=== PATIENT | female | born 1970 | race African-American/Black ===

== ENCOUNTER 2016-08-08 14:47 | Emergency (ER) | payer MEDICAID ==
[~2016-08-08] VITALS: Ht 167.6 cm; Wt 105.0 kg
[2016-08-08] MEDS ORDERED: METF500T4 PO (14:51)
[2016-08-08] MEDS ORDERED: HYDR12.529 PO (14:51)
[2016-08-08] MEDS ORDERED: KETOROLAC 60MG/2ML VIAL IM ONE (18:00)
[2016-08-08] MEDS ORDERED: ONDANSETRON 4MG ODT PO ONE (18:00)
[2016-08-08 18:38] LABS: BASOPHILS % 0.7 % (0.0-2.0); EOSINOPHILS % 0.4 % (0.0-5.0); HEMATOCRIT. 39.1 % (36.0-48.0); HEMOGLOBIN. 12.9 g/dL (12.0-16.0); LYMPHOCYTES % 11.7 % (20.0-50.0); MEAN CORPUSCULAR HEMOGLOBIN 27.4 pg (28.0-32.0); MEAN CORPUSCULAR HGB CONC 33.1 g/dL (31.0-37.0); MEAN CORPUSCULAR VOLUME 82.8 fL (81.0-99.0); MEAN PLATELET VOLUME 7.7 fl (7.4-10.4); MONOCYTES % 5.3 % (2.0-8.0); NEUTROPHILS % 81.9 % (40.0-76.0); PLATELET 266 x1000/uL (130-400); RED BLOOD CELL COUNT 4.72 mill/uL (4.2-5.4); RED CELL DISTRIBUTION WIDTH 15.3 % (11.6-14.6); WHITE BLOOD COUNT 12.1 x1000/uL (4.5-11.0)
[2016-08-08 18:42] LABS: PROTHROMBIN TIME 10.6 sec
[2016-08-08 18:44] LABS: ALBUMIN 3.7 g/dL (3.4-5.0); ANION GAP 10; CALCIUM 9.1 mg/dL (8.5-10.1); CARBON DIOXIDE 27 mEq/L (21-32); CHLORIDE 107 mEq/L (98-107); INDEX HEMOLYSI 1 (1-3); INDEX ICTERIC 1 (1-4); INDEX LIPEMIC 1 (1-3); LIPASE 133 IU/L (73-393); UREA NITROGEN BLOOD 10 mg/dL (7-21)
[2016-08-08 18:47] LABS: ALANINE AMINOTRANSFERASE 53 IU/L (13-61); eGFR > 60 mL/min (>60)
[2016-08-08 18:57] LABS: HCG SCREEN NEGATIVE
[2016-08-08 19:21] LABS: CLARITY URINE CLOUDY (CLEAR); COLOR URINE DARK YELLOW (YELLOW); GLUCOSE URINE NEGATIVE (NEGATIVE); KETONES URINE TRACE (NEGATIVE); LEUKOCYTE ESTERASE URINE 1+ (NEGATIVE); NITRITE URINE NEGATIVE (NEGATIVE); OCCULT BLOOD URINE NEGATIVE (NEGATIVE); PROTEIN URINE 1+ (NEGATIVE); SPECIFIC GRAVITY URINE 1.025 (1.005-1.030)
[2016-08-08 19:40] LABS: RBC URINE 0-2 /hpf (0-2); SQUAMOUS EPITHELIAL CELL URINE 2+ /lpf (RARE/1+)
[2016-08-08 19:41] LABS: BACTERIA URINE 4+
[2016-08-08 20:07] VITALS: BP 120/88
== END 2016-08-08 21:05 | disposition home or self-care (01) ==
LOC: ER 14:55
DX: R10.13 Epigastric pain (principal); R11.2 Nausea with vomiting, unspecified; I10 Essential (primary) hypertension; E11.9 Type 2 diabetes mellitus without complications; F12.10 Cannabis abuse, uncomplicated
CPT/HCPCS: 36415; 74176; 80053; 81001; 83690; 84703; 85025; 85610; 96372; 99285; J1885; Q0162; Z7610